=== PATIENT | female | born 1995 | race Caucasian/White ===

== ENCOUNTER → 2017-10-21 | Emergency (ER) | payer OTHER ==
[~2017-10-21] VITALS: Ht 165.1 cm; Wt 68.5 kg
== END | disposition home or self-care (01) ==
LOC: ER 15:10
DX: J11.1 Influenza due to unidentified influenza virus with other respiratory manifestations (principal)

== ENCOUNTER 2018-01-30 22:11 | Inpatient (IN) | payer OTHER ==
[~2018-01-30] VITALS: Ht 165.1 cm; Wt 68.5 kg
[2018-02-02] MEDS ORDERED: PRENATAL FORMU1 EAC1 PO (14:31)
== END 2018-02-04 15:41 | disposition home or self-care (01) | DRG 780 ==
LOC: OBS/DEL 22:11 → OB/GYN 01-31 13:54 → LDR 01-31 13:54 → OB/GYN 01-31 14:42
PROC: BY4CZZZ Ultrasonography of Second Trimester, Single Fetus (ICD-10-PCS; principal; 2018-01-31)
PROC: 4A1HXCZ Monitoring of Products of Conception, Cardiac Rate, External Approach (ICD-10-PCS; 2018-01-31)
DX: O47.02 False labor before 37 completed weeks of gestation, second trimester (principal); O26.872 Cervical shortening, second trimester

== ENCOUNTER 2018-04-19 18:41 | Outpatient (CLI) | payer OTHER ==
[~2018-04-19 18:41] MED LIST: PRENATAL FORMU1 EAC1 PO
[2018-04-19] MEDS ORDERED: PRENATABS RX T1 EACH PO (21:04)
== END 2018-04-20 13:17 | disposition home or self-care (01) ==
LOC: OBS/DEL 18:41
DX: O20.0 Threatened abortion (principal); Z34.03 Encounter for supervision of normal first pregnancy, third trimester

== ENCOUNTER 2018-04-23 19:29 | Inpatient (IN) | payer OTHER ==
[~2018-04-23] VITALS: Ht 167.6 cm; Wt 79.4 kg
[~2018-04-23 19:29] MED LIST changes: +PRENATABS RX T1 EACH PO
== END 2018-05-01 11:58 | disposition home or self-care (01) | DRG 781 ==
LOC: OBS/DEL 19:29 → LDR 04-24 14:18 → OB/GYN 04-24 18:07
PROC: BW40ZZZ Ultrasonography of Abdomen (ICD-10-PCS; principal; 2018-04-24)
PROC: BY4FZZZ Ultrasonography of Third Trimester, Single Fetus (ICD-10-PCS; 2018-04-24)
PROC: 4A1HXCZ Monitoring of Products of Conception, Cardiac Rate, External Approach (ICD-10-PCS; 2018-04-24)
DX: O21.1 Hyperemesis gravidarum with metabolic disturbance (principal); O47.03 False labor before 37 completed weeks of gestation, third trimester; R74.8 Abnormal levels of other serum enzymes; R10.11 Right upper quadrant pain
CPT/HCPCS: 240

== ENCOUNTER 2018-05-13 19:39 | Outpatient (CLI) | payer OTHER | END 2018-05-14 15:28 | disposition home or self-care (01) | LOC: OBS/DEL 19:39 | DX: O60.03 Preterm labor without delivery, third trimester (principal); Z34.03 Encounter for supervision of normal first pregnancy, third trimester ==

== ENCOUNTER 2018-05-21 12:03 | Outpatient (CLI) | payer OTHER | END 2018-05-21 15:28 | disposition home or self-care, planned readmission (81) | LOC: NST 12:03 | DX: Z34.83 Encounter for supervision of other normal pregnancy, third trimester (principal) ==

== ENCOUNTER 2018-06-01 05:25 | Inpatient (IN) | payer OTHER ==
[~2018-06-01] VITALS: Ht 167.6 cm; Wt 81.2 kg
[2018-06-01] MEDS ORDERED: AMPICILLIN SOD500 MG PO ×2 (06:55→06:56)
== END 2018-06-03 14:11 | disposition home or self-care (01) | DRG 775 ==
LOC: LDR 05:25 → OB/GYN 19:58
PROC: 0KQM0ZZ Repair Perineum Muscle, Open Approach (ICD-10-PCS; principal; 2018-06-01)
PROC: 10E0XZZ Delivery of Products of Conception, External Approach (ICD-10-PCS; 2018-06-01)
PROC: 3E033VJ Introduction of Other Hormone into Peripheral Vein, Percutaneous Approach (ICD-10-PCS; 2018-06-01)
PROC: 4A1HXCZ Monitoring of Products of Conception, Cardiac Rate, External Approach (ICD-10-PCS; 2018-06-01)
PROC: 4A033R1 Measurement of Arterial Saturation, Peripheral, Percutaneous Approach (ICD-10-PCS; 2018-06-02)
DX: O70.1 Second degree perineal laceration during delivery (principal); Z37.0 Single live birth; Z3A.39 39 weeks gestation of pregnancy; Z22.330 Carrier of Group B streptococcus